=== PATIENT | female | born 1990 | race Hispanic/Latino ===

== ENCOUNTER 2019-01-18 13:06 | Emergency (ER) | payer BC ==
--- NOTE | 2019-01-18 17:00 | OBHP ---
Datetime: 01/18/2019 13:20 IP Adm Impression: , intrauterine IP Admit Plan: Discharge home Admit Comment, IP Provider: HPI: Lety is a 28 year old G1 at 23.4 who presents today for concern f or ruptured membranes. She used the bathroom this morning and soon after felt some leaking of fluid i nto her underwear and through her leggings. Denies any fluid running down her legs or pooling on the floor. No contractions or abdominal pain. Feeling movement. 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 Denies tobacco, alcohol and drug use during the . PHYSICAL EXAM See exam section labs unavailable FHR appropriate for gestational age ASSESSMENT/PLAN: 28 year old G1 at 23.4 here for rule out rupture of membranes. Speculum exam was unremarkable and there is a low suspicion for rupture at this time. FHR appropriate. No indication fo r admission or further work-up at this time. Patient has her next appt 01/28 and her next US next week. Return precautions given. Michelle Magaña MD [facility] Addendum: Pt seen be me. Agree w/ above. 28 yo G1 at 23+4 wks w/ c/o LOF w/ no e vidence of ruptured membranes on exam. Pt discharged home. (ES) Extremities - PN: Normal Lungs - PN: Normal Heart - PN: Normal HEENT - PN: Normal General - PN: Normal FHR - Baseline A Provider: 150 Comments, ACOG Physical Exam: SSE: cervix appears closed, small amout of clear discharge, nitrazine (-), negative pooling Gestation - Est Wks by US: 23.4 EGA AdmitDate IP: 23.4 Vital Signs Provider: Reviewed; Within Normal Limits IP Chief Complaint: Suspected ruptured membranes Dilatation, Provider: 0 Genitourinary Exam: Normal
--- NOTE | 2019-01-18 17:00 | OBDCSUM ---
Datetime: 01/18/2019 13:25 Discharged to, Provider: Home Follow up at, Provider: Dr Hayes Disch Instr Activity: Normal activity; May be up to bathroom; May be up for meals; May Shower Disch Instr Diet: Regular Discharge Time: 01/18/2019 13:45 Follow up in weeks, Provider: 01/28/2019 Disch Referrals: None Discharge Diagnosis Prov Other: vaginal discharge at 23+ weeks
[2019-01-18 19:21] VITALS: BP 125/68; PULSE 85; TEMP 98
== END 2019-01-18 13:45 | disposition home or self-care (01) ==
LOC: H.EROB2 13:06
DX: O34.62 Maternal care for abnormality of vagina, second trimester (principal); N89.8 Other specified noninflammatory disorders of vagina; Z3A.23 23 weeks gestation of pregnancy